=== PATIENT | male | born 1995 | race American Indian/Alaskan Native ===

== ENCOUNTER 2017-04-04 01:10 | Emergency (ER) | payer OTHER ==
[2017-04-04 01:18] VITALS: TEMP 98.2; O2SAT 99
[2017-04-04] MEDS ORDERED: TDAP Vaccine 0.5 mL Syr IM ONE (01:20)
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
[2017-04-04 02:20] VITALS: BP 140/83; PULSE 87; RESP 16
== END 2017-04-04 02:20 | disposition home or self-care (01) ==
LOC: ED 01:10
DX: S10.91XA Abrasion of unspecified part of neck, initial encounter (principal); Y04.0XXA Assault by unarmed brawl or fight, initial encounter; Z23 Encounter for immunization